=== PATIENT | male | born 1990 | race Caucasian/White ===

== ENCOUNTER 2017-02-26 13:14 | Emergency (ER) | payer MEDICAID ==
[~2017-02-26] VITALS: Ht 172.7 cm; Wt 74.8 kg
--- NOTE | 2017-02-26 13:42 | NUR ---
MSSE COMPLETED, PT D/C'D HOME, ACI/RX X3 GIVEN. PT AMBULATED W/O DIFF/TOOK ALL BENGINGS.
[2017-02-26 13:44] VITALS: BP 133/78
== END 2017-02-26 13:44 | disposition home or self-care (01) ==
LOC: ER 13:14
DX: J36 Peritonsillar abscess (principal); F17.200 Nicotine dependence, unspecified, uncomplicated; Z59.0 Homelessness; Z88.1 Allergy status to other antibiotic agents; Z98.890 Other specified postprocedural states
CPT/HCPCS: A4663

== ENCOUNTER 2017-08-05 22:55 | Emergency (ER) | payer SELFPAY ==
[~2017-08-05] VITALS: Ht 172.7 cm; Wt 74.8 kg
--- NOTE | 2017-08-05 23:40 | NUR ---
CATHERINE GONZALES at bedside for MSE.
--- NOTE | 2017-08-06 00:05 | NUR ---
Patient discharged to home in stable conditon. Written and verbal after care instructions given. Patient verbalizes understanding of instructions. Pt ambulated out of ER w/ steady gait. No distress noted.
[2017-08-06 00:29] VITALS: BP 114/72
== END 2017-08-06 00:30 | disposition home or self-care (01) ==
LOC: ER 22:59
DX: L02.11 Cutaneous abscess of neck (principal); F17.200 Nicotine dependence, unspecified, uncomplicated; Z88.1 Allergy status to other antibiotic agents; Z59.0 Homelessness; Z98.890 Other specified postprocedural states
CPT/HCPCS: 99283; A4663